=== PATIENT | female | born 1930 | race Caucasian/White ===

== ENCOUNTER 2017-04-21 04:14 | Inpatient (IN) | payer OTHER ==
[~2017-04-21] VITALS: Ht 170.2 cm; Wt 61.2 kg
[2017-04-21] MEDS ORDERED: ONDANSETRON 4 MG/2 ML VIAL IV ONE (04:30)
[2017-04-21] MEDS ORDERED: MORPHINE SULFATE 2 MG/1 ML DISP.SYRIN IV ONE (04:30)
[2017-04-21] MEDS ORDERED: MORPHINE SULFATE 4 MG/1 ML DISP.SYRIN ONE ×2 (04:42→05:29)
[2017-04-21] MEDS ORDERED: ONDANSETRON 4 MG/2 ML VIAL ONE (04:42)
[2017-04-21 04:49] LABS: BASOPHILS % (AUTO) 0.3 % (0.0-2.0); EOSINOPHILS # (AUTO) 0.1 K/uL (0.0-0.7); EOSINOPHILS % (AUTO) 1.7 % (0.0-7.0); HEMATOCRIT 41.2 % (37-47); HEMOGLOBIN 13.7 G/DL (12.0-16.0); LYMPHOCYTES # (AUTO) 1.3 K/UL (0.8-4.8); LYMPHOCYTES % (AUTO) 26.3 % (20.5-51.5); MEAN CORPUSCULAR HEMOGLOBIN 29.2 UUG (27.0-31.0); MEAN CORPUSCULAR HGB CONC 33 g/dL (32.0-37.0); MEAN CORPUSCULAR VOLUME 87.9 FL (81.0-99.0); MONOCYTES # (AUTO) 0.2 K/UL (0.1-1.30); MONOCYTES % (AUTO) 4.9 % (0.0-11.0); NEUTROPHILS # (AUTO) 3.3 K/UL (1.8-8.9); NEUTROPHILS % (AUTO) 66.8 % (38.5-71.5); PLATELET COUNT (AUTO) 279 K/UL (150-450); RED BLOOD CELL COUNT(AUTO) 4.69 MIL/UL (4.2-5.4); WHITE BLOOD COUNT (AUTO) 4.9 K/UL (4.0-11.2)
[2017-04-21 05:05] LABS: ALKALINE PHOSPHATASE 56 U/L (50-136); ASPARTATE AMINOTRANSFERASE 19 U/L (15-37); BILIRUBIN,DIRECT 0.1 mg/dL (0.0-0.2); BILIRUBIN,TOTAL 0.4 mg/dL (0.2-1.0); CARBON DIOXIDE 29 mmol/L (21-32); CHLORIDE 103 mmol/L (98-107); CREATININE 0.6 mg/dL (0.6-1.3); GLUCOSE 106 mg/dL (74-106); POTASSIUM 3.6 mmol/L (3.5-5.1); TOTAL PROTEIN, SERUM 6.9 g/dL (6.4-8.2); UREA NITROGEN, BLOOD 11 mg/dL (7-18)
[2017-04-21] MEDS ORDERED: MORPHINE SULFATE 4 MG/1 ML DISP.SYRIN IV ONE (05:15)
--- NOTE | 2017-04-21 05:26 | NUR ---
Pt biba for c/o right hip pain s/p mech fall. Pt has noted external rotation and shortening. Pos CMS. Pt seen by MD. Labs drawn and sent. EKG obtained. Xrays obtain and louise placed. Pt medicated for discomfort twice. Will monitor for effects of medication. Pt resting in position of comfort for self. Family at bedside.
[2017-04-21 05:31] LABS: ALANINE AMINOTRANSFERASE 20 U/L (14-59)
--- NOTE | 2017-04-21 05:31 | NUR ---
Call placed to [facility], Dr. Gray will be paged.
--- NOTE | 2017-04-21 05:51 | NUR ---
ALEC speaking with Dr. Gray.
[2017-04-21] MEDS ORDERED: ACETAMINOPHEN 325 MG TABLET PO PRN (06:00)
[2017-04-21] MEDS ORDERED: HYDROCODONE/APAP 5-325MG TABLET PO PRN (06:00)
[2017-04-21] MEDS ORDERED: ONDANSETRON 4 MG/2 ML VIAL IV PRN (06:00)
[2017-04-21] MEDS ORDERED: ZOLPIDEM 5 MG TABLET PO PRN (06:00)
[2017-04-21] MEDS ORDERED: Z GUARD REMEDY PASTE 57 GM TUBE TOP PRN (06:00)
--- NOTE | 2017-04-21 06:01 | NUR ---
Report called to ANA Haas. Preparing to transfer pt to the floor.
[2017-04-21 06:42] VITALS: BP 140/66
[2017-04-21] MEDS: MORPHINE SULFATE 2 MG/1 ML DISP.SYRIN IV PRN ×2 (08:06→12:36)
[2017-04-21] MEDS: PANTOPRAZOLE SODIUM 40 MG TABLET.DR PO SCH (08:08)
[2017-04-21] MEDS: IV NS 1000 ML 1,000 ML IV PRN ×2 (08:18→21:43)
--- NOTE | 2017-04-21 08:30 | NUR ---
ADMISSION PROTOCOL FOLLOWED, PT LYING SUPINE IN BED, AWAKE IN NO ACUTE DISTRESS, PAIN 7/10, WILL ADMIN PAIN MEDICATIONS ORDERED. ALL SAFETY AND COMFORT MEDICATIONS ATTENDED TO, ORIENTED TO ROOM AND CALL LIGHT, WILL CONTINUE TO MONITOR
[2017-04-21 11:11] VITALS: BP 113/55
[2017-04-21 15:20] VITALS: BP 127/62
--- NOTE | 2017-04-21 19:22 | NUR ---
NO CHANGES NOTED THROUGHOUT SHIFT, SPOKE WITH DR UNDERWOOD, WILL BE IN TONIGHT OR TOMORROW MORNING FOR CONSULT. PT DOES NOT WANT TO EAT FOR FEAR OF BOWEL MOVEMENT, EXPLAINED TO PT NUMEROUS TIMES THAT IT IS IMPORTANT TO EAT AND THAT WE CAN PRE MEDICATE WITH PAIN MEDICATION WHEN IT IS TIME TO MOVE AND CLEAN PT, PT FAMILY MEMBERS AT BEDSIDE ONE OF THE TIMES AND SIDED WITH PT. ENDORSED TO NUCLEAR EQUIPMENT TEST ENGINEER DURING BEDSIDE REPORT AND PT AGREED TO TRY A SANDWICH OR JELLO, WILL PROVIDE. ALL SAFETY AND COMFORT MEASURES MAINTAINED THROUGHOUT SHIFT. CALL LIGHT IN REACH
--- NOTE | 2017-04-21 19:30 | NUR ---
RECEIVED PATIENT LAYING IN BED, HOB 15 DEGREES COMFORTABLY WITH NO SIGNS OF ACUTE DISTRESS. PATIENT IS ALERT AND ORIENTED Xs 4. ENCOURAGE EATING. ENCOURAGED TURN AND REPOSITIONED BUT PATIENT IS AFRAID TO MOVE BECAUSE OF HIP PAIN. IV ON L AC PATENT AND INTACT. SAFETY INITIATED. CALL LIGHT WITHIN REACH. PENDING DR. UNDERWOOD FOR ORTHO CONSULT.
[2017-04-21 20:22] VITALS: BP 134/61
[2017-04-22] MEDS: MORPHINE SULFATE 2 MG/1 ML DISP.SYRIN IV PRN ×4 (02:33→19:47)
[2017-04-22] MEDS: PANTOPRAZOLE SODIUM 40 MG TABLET.DR PO SCH (06:18)
[2017-04-22 06:35] VITALS: BP 138/69
[2017-04-22 07:40] LABS: CARBON DIOXIDE 28 mmol/L (21-32); CHLORIDE 102 mmol/L (98-107); CREATININE 0.5 mg/dL (0.6-1.3); GLUCOSE 90 mg/dL (74-106); MAGNESIUM 1.9 mg/dL (1.8-2.4); PHOSPHOROUS 2.9 mg/dL (2.5-4.9); POTASSIUM 3.5 mmol/L (3.5-5.1); UREA NITROGEN, BLOOD 6 mg/dL (7-18)
--- NOTE | 2017-04-22 07:44 | NUR ---
PATIENT SLEPT COMFORTABLY THROUGHOUT THE NIGHT. NO ACUTE DISTRESS NOTED. WAS ABLE TO LOG ROLL TO CHECK THE SKIN, NO SKIN BREAKDOWN NOTED. SAFETY WAS MAINTAINED THROUGHOUT THE NIGHT. ALL NEEDS MET.
[2017-04-22 07:47] LABS: BASOPHILS % (AUTO) 0.3 % (0.0-2.0); EOSINOPHILS # (AUTO) 0.1 K/uL (0.0-0.7); EOSINOPHILS % (AUTO) 0.9 % (0.0-7.0); HEMATOCRIT 38.2 % (37-47); LYMPHOCYTES # (AUTO) 1.3 K/UL (0.8-4.8); LYMPHOCYTES % (AUTO) 17.6 % (20.5-51.5); MEAN CORPUSCULAR HEMOGLOBIN 30.3 UUG (27.0-31.0); MEAN CORPUSCULAR HGB CONC 34 g/dL (32.0-37.0); MONOCYTES # (AUTO) 0.5 K/UL (0.1-1.30); NEUTROPHILS # (AUTO) 5.5 K/UL (1.8-8.9); NEUTROPHILS % (AUTO) 74.2 % (38.5-71.5); PLATELET COUNT (AUTO) 247 K/UL (150-450); RED BLOOD CELL COUNT(AUTO) 4.29 MIL/UL (4.2-5.4)
[2017-04-22 07:56] LABS: WHITE BLOOD COUNT (AUTO) 7.4 K/UL (4.0-11.2)
[2017-04-22 11:13] VITALS: BP 144/70
[2017-04-22 11:36] LABS: *BILIRUBIN,URIN NEGATIVE (NEGATIVE); *BLOOD, URINE 3+ (NEGATIVE); *CLARITY,URINE CLOUDY (CLEAR); *COLOR,URINE LIGHT YELLOW (YELLOW); *KETONES,URINE 3+ (NEGATIVE); *PROTEIN,URINE NEGATIVE (NEGATIVE); *UROBILINOGEN,URINE 0.2 E.U./dl (NORMAL); LEUKOCYTE ESTERASE ,URINE 1+ (NEGATIVE); NITRITE, URINE NEGATIVE (NEGATIVE); UGLUCOSE NEGATIVE (NEGATIVE)
[2017-04-22 11:47] LABS: BACTERIA,URINE MANY /HPF (NONE SEEN); RBC,URINE 20-50 /HPF (0-3); SQUAMOUS EPITHELIAL CELL,UR FEW /HPF (NONE SEEN)
[2017-04-22] MEDS: IV NS 1000 ML 1,000 ML IV PRN (12:13)
[2017-04-22 15:15] VITALS: BP 115/57
[2017-04-22] MEDS ORDERED: CEFTRIAXONE 1 G VIAL IM SCH (16:15)
[2017-04-22] MEDS: CEFTRIAXONE 1 G in IV DEXTROSE 5% 50 ML IV SCH (17:51)
--- NOTE | 2017-04-22 19:30 | NUR ---
PT RECEIVED IN BED. A/OX4. V/S STABLE. NO SIGNS OF ACUTE DISTRESS. NO COMPLAINTS OF PAIN AT THIS TIME. ABLE TO MAKE NEEDS KNOWN. IVF INFUSING. SAFETY MEASURES IMPLEMENTED. CALL LIGHT WITHIN REACH. WILL CONTINUE TO MONITOR.
[2017-04-22 20:12] VITALS: BP 112/61
[2017-04-22] MEDS: MAGNESIUM HYDROXIDE 30 ML LIQUID UDC PO PRN (22:57)
[2017-04-23] MEDS: MORPHINE SULFATE 2 MG/1 ML DISP.SYRIN IV PRN (01:15)
[2017-04-23] MEDS: IV NS 1000 ML 1,000 ML IV PRN ×3 (03:57→14:09)
[2017-04-23 04:47] VITALS: BP 143/66
--- NOTE | 2017-04-23 06:10 | NUR ---
END OF SHIFT NOTES. PT SLEPT WELL THROUGHOUT SHIFT. V/S STABLE. NO SIGNS OF ACUTE DISTRESS. COMPLAINTS OF PAIN 06/15. PAIN MEDICATIONS ADMINISTERED ORDERED. PT VERBALIZED RELIEF OF PAIN. IVF INFUSING. NEEDS ATTENDED. SAFETY MAINTAINED. CALL LIGHT WITHIN REACH.
[2017-04-23] MEDS: PANTOPRAZOLE SODIUM 40 MG TABLET.DR PO SCH (07:00)
--- NOTE | 2017-04-23 07:10 | NUR ---
RECEIVED REPORT FROM DESTATICIZER FEEDER, PATIENT IN BED, SAFETY CHECK, BED IN LOW POSITION AND SIDE RAILS UPX2.
[2017-04-23 07:36] LABS: EOSINOPHILS # (AUTO) 0.1 K/uL (0.0-0.7); EOSINOPHILS % (AUTO) 1.1 % (0.0-7.0); HEMATOCRIT 38.4 % (37-47); HEMOGLOBIN 13.2 G/DL (12.0-16.0); LYMPHOCYTES # (AUTO) 1.2 K/UL (0.8-4.8); LYMPHOCYTES % (AUTO) 13.6 % (20.5-51.5); MEAN CORPUSCULAR HEMOGLOBIN 30.2 UUG (27.0-31.0); MEAN CORPUSCULAR HGB CONC 34 g/dL (32.0-37.0); MEAN CORPUSCULAR VOLUME 88.1 FL (81.0-99.0); MONOCYTES # (AUTO) 0.6 K/UL (0.1-1.30); MONOCYTES % (AUTO) 6.8 % (0.0-11.0); NEUTROPHILS % (AUTO) 78.5 % (38.5-71.5); PLATELET COUNT (AUTO) 255 K/UL (150-450); RED BLOOD CELL COUNT(AUTO) 4.36 MIL/UL (4.2-5.4); WHITE BLOOD COUNT (AUTO) 8.9 K/UL (4.0-11.2)
[2017-04-23] MEDS ORDERED: MORPHINE SULFATE 4 MG/1 ML DISP.SYRIN ONE (07:44)
[2017-04-23] MEDS ORDERED: ROCURONIUM BROMIDE 50 MG/5 ML VIAL ONE (07:44)
[2017-04-23] MEDS ORDERED: FENTANYL CITRATE 250 MCG/5 ML AMPUL ONE (07:44)
[2017-04-23 07:49] LABS: CARBON DIOXIDE 29 mmol/L (21-32); CHLORIDE 100 mmol/L (98-107); CREATININE 0.5 mg/dL (0.6-1.3); GLUCOSE 101 mg/dL (74-106); PHOSPHOROUS 2.5 mg/dL (2.5-4.9); POTASSIUM 3.4 mmol/L (3.5-5.1); UREA NITROGEN, BLOOD 7 mg/dL (7-18)
--- NOTE | 2017-04-23 08:00 | NUR ---
PATIENT WAS TAKEN TO SURGERY
[2017-04-23] MEDS ORDERED: BACITRACIN 50,000 UNITS VIAL ONE (08:14)
--- NOTE | 2017-04-23 11:00 | NUR ---
PATIENT RETURNED FROM SURGERY, VITALS WNL, NO PAIN REPORTED, BED IN LOW POSITION, SIDE RAILS UP X2.
[2017-04-23 11:14] VITALS: BP 106/54
[2017-04-23] MEDS: POTASSIUM CHLORIDE 50 ML IV SCH ×2 (11:29→11:39)
[2017-04-23] MEDS ORDERED: HYDROCODONE/APAP 10-325 MG TABLET PO PRN (11:45)
[2017-04-23] MEDS ORDERED: HYDROCODONE/APAP 5-325MG TABLET PO PRN ×2 (13:00)
[2017-04-23] MEDS: ACETAMINOPHEN 325 MG TABLET PO SCH ×2 (14:00→22:54)
[2017-04-23] MEDS ORDERED: CEFAZOLIN 1 G VIAL MC ONE (14:01)
[2017-04-23] MEDS ORDERED: IV LACTATED RINGERS SOLUTION 1,000 ML BAG IV ONE (14:01)
[2017-04-23] MEDS ORDERED: NEOSTIGMINE METHYLSULFATE 10 MG/10 ML VIAL IV ONE (14:01)
[2017-04-23] MEDS ORDERED: ONDANSETRON 4 MG/2 ML VIAL IV ONE (14:01)
[2017-04-23] MEDS ORDERED: DEXAMETHASONE SOD PHOSPHATE 4 MG INJ IV ONE (14:01)
[2017-04-23] MEDS ORDERED: GLYCOPYRROLATE 0.2 MG/ML VIAL MC ONE (14:01)
[2017-04-23] MEDS ORDERED: LIDOCAINE-MPF 2% 5 ML VIAL MC ONE (14:01)
[2017-04-23] MEDS ORDERED: DESFLURANE ANESTHESIA GAS 240 ML BOTTLE IH ONE (14:01)
[2017-04-23] MEDS ORDERED: PROPOFOL 200 MG/20 ML BOTTLE IV ONE (14:01)
[2017-04-23] MEDS ORDERED: EPHEDRINE SULFATE 50 MG/ML AMPUL MC ONE (14:01)
[2017-04-23] MEDS ORDERED: IRR NORMAL SALINE IRRIGATION 1,000 ML BOTTLE IR ONE (14:01)
[2017-04-23 15:40] VITALS: BP 99/56
[2017-04-23] MEDS: CEFTRIAXONE 1 G in IV DEXTROSE 5% 50 ML IV SCH (17:22)
--- NOTE | 2017-04-23 19:30 | NUR ---
PT RECEIVED IN BED, ASLEEP. V/S STABLE. NO SIGNS OF ACUTE DISTRESS. NO COMPLAINTS OF PAIN AT THIS TIME. PT ON 2L NC. SAFETY MEASURES IMPLEMENTED. CALL LIGHT WITHIN REACH WILL CONTINUE TO MONITOR.
[2017-04-23 20:00] VITALS: BP 93/50
[2017-04-24] MEDS: IV NS 1000 ML 1,000 ML IV PRN ×3 (00:42→19:00)
[2017-04-24] MEDS: MAGNESIUM HYDROXIDE 30 ML LIQUID UDC PO PRN (03:03)
--- NOTE | 2017-04-24 05:58 | NUR ---
END OF SHIFT NOTES. PT SLEPT INTERMITTENTLY THROUGHOUT SHIFT. V/S STABLE. NO SIGNS OF ACUTE DISTRESS. NO COMPLAINTS OF PAIN THROUGHOUT SHIFT. PT COMPLAINS OF FEELING CONSTIPATED. MILK OF MAG ADMINISTERED ORDERED. IVF INFUSING. WESTBROOK CATHETER OUTPUT 450ML THROUGHOUT SHIFT. URINE CLEAR YELLOW. SAFETY MEASURES MAINTAINED. CALL LIGHT WITHIN REACH.
[2017-04-24 06:10] VITALS: BP 100/57
[2017-04-24] MEDS: ACETAMINOPHEN 325 MG TABLET PO SCH ×3 (06:16→21:04)
[2017-04-24] MEDS: PANTOPRAZOLE SODIUM 40 MG TABLET.DR PO SCH (06:16)
--- NOTE | 2017-04-24 07:20 | NUR ---
RECEIVED REPORT FROM BANKING SERVICES ADVISOR, SAFETY CHECK, BED IN LOW POSITION, SIDE RAILS UPX2, BED ALARM ON.
[2017-04-24 07:37] LABS: CARBON DIOXIDE 28 mmol/L (21-32); CHLORIDE 99 mmol/L (98-107); CREATININE 0.6 mg/dL (0.6-1.3); GLUCOSE 117 mg/dL (74-106); MAGNESIUM 2.2 mg/dL (1.8-2.4); PHOSPHOROUS 2.3 mg/dL (2.5-4.9); POTASSIUM 4.2 mmol/L (3.5-5.1); UREA NITROGEN, BLOOD 16 mg/dL (7-18)
[2017-04-24 08:54] LABS: BASOPHILS % (AUTO) 0.2 % (0.0-2.0); EOSINOPHILS # (AUTO) 0.1 K/uL (0.0-0.7); EOSINOPHILS % (AUTO) 0.8 % (0.0-7.0); LYMPHOCYTES # (AUTO) 1.1 K/UL (0.8-4.8); LYMPHOCYTES % (AUTO) 9.7 % (20.5-51.5); MEAN CORPUSCULAR HEMOGLOBIN 30.2 UUG (27.0-31.0); MEAN CORPUSCULAR HGB CONC 34 g/dL (32.0-37.0); MEAN CORPUSCULAR VOLUME 88.6 FL (81.0-99.0); MONOCYTES # (AUTO) 0.5 K/UL (0.1-1.30); MONOCYTES % (AUTO) 4.6 % (0.0-11.0); NEUTROPHILS # (AUTO) 9.2 K/UL (1.8-8.9); NEUTROPHILS % (AUTO) 84.7 % (38.5-71.5); PLATELET COUNT (AUTO) 234 K/UL (150-450); WHITE BLOOD COUNT (AUTO) 10.9 K/UL (4.0-11.2)
[2017-04-24 08:55] LABS: RED BLOOD CELL COUNT(AUTO) 3.79 MIL/UL (4.2-5.4)
[2017-04-24 08:56] LABS: HEMATOCRIT 33.6 % (37-47); HEMOGLOBIN 11.5 G/DL (12.0-16.0)
[2017-04-24] MEDS ORDERED: SODIUM PHOSPHATE MM 15 MM in IV DEXTROSE 5% 250 ML IV ONE (11:15)
[2017-04-24] MEDS: DOCUSATE SODIUM 100 MG CAPSULE PO SCH ×2 (11:58→21:04)
[2017-04-24 12:00] VITALS: BP 111/62
[2017-04-24] MEDS: MORPHINE SULFATE 2 MG/1 ML DISP.SYRIN IV PRN (12:05)
--- NOTE | 2017-04-24 14:00 | NUR ---
PATIENT GOT UP WITH PHYSICAL THERAPY AND TOLERATED WELL, SAT IN CHAIR UPRIGHT FOR AN HOUR.
[2017-04-24 16:16] VITALS: BP 105/60
[2017-04-24] MEDS: CEFTRIAXONE 1 G in IV DEXTROSE 5% 50 ML IV SCH (17:47)
--- NOTE | 2017-04-24 18:26 | NUR ---
PATIENT IS IN BED, NO DISCOMFORT NOTED, NO SOB, NO PAIN REPORTED. SAFETY CHECK, BED IN LOW POSITION, SIDE RAILS UP X2, BED ALARM ON.
--- NOTE | 2017-04-24 20:00 | NUR ---
RECEIVED PATIENT AWAKE IN BED. PATIENT IS A/O X3. DENIES PAIN OR DISCOMFORT AT THIS TIME. NO RESP. DISTRESS NOTED. ON O2 2L NC SATING WELL. IVF INFUSING WELL TO RIGHT WRIST #20 GAUGE. ORIGINAL DRESSING NOTED TO RIGHT HIP. CLEAN AND INTACT, ICE APPLIED TO HIP. BILATERAL DVT PUMPS IN PLACE AND BILATERAL HEELS OFF-LOADED FOR PRESSURE RELIEF. F/C INTACT AND PATENT, DRAINING WELL. ON ISOLATION FOR ESBL IN URINE. BED ALARM ON. CALL LIGHT IN REACH. ALL NEEDS ATTENDED. WILL CONTINUE TO MONITOR.
[2017-04-25] MEDS: IV NS 1000 ML 1,000 ML IV PRN (05:10)
--- NOTE | 2017-04-25 05:30 | NUR ---
PATIENT AWAKE IN BED. SLEPT WELL THROUGHOUT THE NIGHT. ICE BAG NOTED TO RIGHT HIP. PATIENT IS 2ND DAY POST-OP, WESTBROOK CATHETER REMOVED NOTED PROTOCOL. DENIES PAIN AT THIS TIME. NO RESP. DISTRESS NOTED. VSS. IVF INFUSING WELL TO RIGHT WRIST. BED ALARM ON. CALL LIGHT IN REACH. ALL NEEDS ATTENDED. WILL CONTINUE TO MONITOR.
[2017-04-25] MEDS: PANTOPRAZOLE SODIUM 40 MG TABLET.DR PO SCH (06:03)
[2017-04-25] MEDS: ACETAMINOPHEN 325 MG TABLET PO SCH ×3 (06:03→21:39)
[2017-04-25 06:47] VITALS: BP 104/62
[2017-04-25 06:56] LABS: BASOPHILS % (AUTO) 0.3 % (0.0-2.0); EOSINOPHILS # (AUTO) 0.1 K/uL (0.0-0.7); EOSINOPHILS % (AUTO) 1.6 % (0.0-7.0); HEMATOCRIT 30.8 % (37-47); HEMOGLOBIN 10.4 G/DL (12.0-16.0); LYMPHOCYTES % (AUTO) 12.5 % (20.5-51.5); MEAN CORPUSCULAR HEMOGLOBIN 30.6 UUG (27.0-31.0); MEAN CORPUSCULAR HGB CONC 34 g/dL (32.0-37.0); MEAN CORPUSCULAR VOLUME 90.5 FL (81.0-99.0); MONOCYTES # (AUTO) 0.4 K/UL (0.1-1.30); MONOCYTES % (AUTO) 5.6 % (0.0-11.0); NEUTROPHILS # (AUTO) 6.5 K/UL (1.8-8.9); PLATELET COUNT (AUTO) 227 K/UL (150-450)
--- NOTE | 2017-04-25 07:10 | NUR ---
received report from warehouse supervisor 3rd shift, patient in bed, safety check, bed in low position, side rails upx2.
[2017-04-25 07:54] LABS: CARBON DIOXIDE 28 mmol/L (21-32); CHLORIDE 103 mmol/L (98-107); CREATININE 0.5 mg/dL (0.6-1.3); GLUCOSE 106 mg/dL (74-106); PHOSPHOROUS 2.2 mg/dL (2.5-4.9); POTASSIUM 3.7 mmol/L (3.5-5.1); UREA NITROGEN, BLOOD 10 mg/dL (7-18)
[2017-04-25] MEDS: DOCUSATE SODIUM 100 MG CAPSULE PO SCH ×2 (09:54→21:39)
[2017-04-25] MEDS: MORPHINE SULFATE 2 MG/1 ML DISP.SYRIN IV PRN (10:21)
--- NOTE | 2017-04-25 10:50 | NUR ---
PATIENT WORKING WITH PHYSICAL THERAPY, TOLERATING WELL AFTER PREMEDICATION FOR PAIN.
[2017-04-25] MEDS: POTASSIUM PHOSPHATE MM 5 MMOL in IV DEXTROSE 5% 100 ML IV SCH ×2 (11:30→12:45)
[2017-04-25 11:48] LABS: THYROID STIMULATING HORMONE 1.974 mIU/mL (0.358-3.740)
[2017-04-25 11:56] VITALS: BP 116/60
--- NOTE | 2017-04-25 12:10 | NUR ---
PATIENT WORKING WITH OCCUPATIONAL THERAPY, TOLERATED WELL.
[2017-04-25 15:28] VITALS: BP 106/48
[2017-04-25] MEDS: SOD FERRIC GLUC COMPLX/SUCROSE 125 MG in IV NORMAL SALINE 100 ML IV SCH (17:00)
--- NOTE | 2017-04-25 18:13 | NUR ---
PATIENT IS IN BED, NO EVIDENCE OF DISTRESS, SOB, OR PAIN. SIDE RAILS UPX2, BED IN LOW POSITION, BED ALARM ON.
[2017-04-25] MEDS: CEFTRIAXONE 1 G in IV DEXTROSE 5% 50 ML IV SCH (18:21)
--- NOTE | 2017-04-25 19:30 | NUR ---
PT RECEIVED IN BED, AWAKE. V/S STABLE. NO SIGNS OF ACUTE DISTRESS. NO COMPLAINTS OF PAIN AT THIS TIME. ABLE TO MAKE NEEDS KNOWN. IVF INFUSING. SAFETY PRECAUTIONS IMPLEMENTED. CALL LIGHT WITHIN REACH. WILL CONTINUE TO MONITOR.
[2017-04-25 20:10] VITALS: BP 113/48
[2017-04-25 20:37] LABS: *OCCULT BLOOD STOOL NEGATIVE (NEGATIVE)
[2017-04-26] MEDS: IV NS 1000 ML 1,000 ML IV PRN ×2 (00:21→14:53)
[2017-04-26 04:41] VITALS: BP_SYST 120; BP_SYST 141; BP_DIAS 64; BP_DIAS 81
[2017-04-26] MEDS: ACETAMINOPHEN 325 MG TABLET PO SCH ×3 (06:28→21:19)
[2017-04-26] MEDS: PANTOPRAZOLE SODIUM 40 MG TABLET.DR PO SCH (06:28)
--- NOTE | 2017-04-26 06:40 | NUR ---
END OF SHIFT NOTES. PT SLEPT WELL THROUGHOUT SHIFT. V/S STABLE. NO SIGNS OF ACUTE DISTRESS. NO COMPLAINTS OF PAIN AT THIS TIME. IVF INFUSING. NEEDS ATTENDED. SAFETY MAINTAINED. CALL LIGHT WITHIN REACH.
[2017-04-26 07:27] LABS: BASOPHILS % (AUTO) 0.3 % (0.0-2.0); EOSINOPHILS # (AUTO) 0.1 K/uL (0.0-0.7); EOSINOPHILS % (AUTO) 1.5 % (0.0-7.0); HEMATOCRIT 30.8 % (37-47); HEMOGLOBIN 10.5 G/DL (12.0-16.0); LYMPHOCYTES % (AUTO) 13.8 % (20.5-51.5); MEAN CORPUSCULAR HEMOGLOBIN 30.1 UUG (27.0-31.0); MEAN CORPUSCULAR HGB CONC 34 g/dL (32.0-37.0); MEAN CORPUSCULAR VOLUME 88.4 FL (81.0-99.0); MONOCYTES # (AUTO) 0.5 K/UL (0.1-1.30); NEUTROPHILS # (AUTO) 5.6 K/UL (1.8-8.9); NEUTROPHILS % (AUTO) 77.4 % (38.5-71.5); PLATELET COUNT (AUTO) 247 K/UL (150-450); RED BLOOD CELL COUNT(AUTO) 3.49 MIL/UL (4.2-5.4); WHITE BLOOD COUNT (AUTO) 7.2 K/UL (4.0-11.2)
[2017-04-26] MEDS: DOCUSATE SODIUM 100 MG CAPSULE PO SCH ×2 (08:04→21:19)
[2017-04-26 08:20] LABS: CARBON DIOXIDE 27 mmol/L (21-32); CHLORIDE 102 mmol/L (98-107); CREATININE 0.4 mg/dL (0.6-1.3); GLUCOSE 104 mg/dL (74-106); MAGNESIUM 2.2 mg/dL (1.8-2.4); PHOSPHOROUS 2.5 mg/dL (2.5-4.9); POTASSIUM 3.9 mmol/L (3.5-5.1); UREA NITROGEN, BLOOD 8 mg/dL (7-18)
[2017-04-26] MEDS: MORPHINE SULFATE 2 MG/1 ML DISP.SYRIN IV PRN (11:10)
[2017-04-26 11:37] VITALS: BP 153/72
[2017-04-26] MEDS: SOD FERRIC GLUC COMPLX/SUCROSE 125 MG in IV NORMAL SALINE 100 ML IV SCH (14:53)
[2017-04-26 15:29] VITALS: BP 126/62
[2017-04-26] MEDS: CEFTRIAXONE 1 G in IV DEXTROSE 5% 50 ML IV SCH (18:18)
--- NOTE | 2017-04-26 19:30 | NUR ---
IN BED, ALERT AND ORIENTED. ABLE TO MAKE NEEDS KNOWN. NO ACUTE DISTRESS NOTED AT THIS TIME. NO COMPLAINTS OF PAIN AT THIS TIME. AWARE OF POSSIBLE DC TOMORROW. STATED WAS ABLE TO AMBULATE WITH PT DURING THE DAY TIME AND WAS ABLE TO SIT IN THE CHAIR. SAFETY INITIATED. CALL LIGHT WITHIN REACH. WILL CONTINUE TO MONITOR
[2017-04-26 20:00] VITALS: BP 122/59
[2017-04-27] MEDS: IV NS 1000 ML 1,000 ML IV PRN ×3 (02:10→23:02)
[2017-04-27 04:00] VITALS: BP 135/66
--- NOTE | 2017-04-27 05:49 | NUR ---
SLEPT INTERMITTENTLY DURING THE SHIFT. ABLE TO HELP DURING TURNING AND REPOSITION. NO ACUTE DISTRESS NOTED. ALL DUE MEDS GIVEN ORDERED. PAIN CONTROLLED WITH MEDICATIONS ORDERED. NEEDS ATTENDED. CALL LIGHT WITHIN REACH
[2017-04-27] MEDS: ACETAMINOPHEN 325 MG TABLET PO SCH ×3 (06:13→21:24)
[2017-04-27] MEDS: PANTOPRAZOLE SODIUM 40 MG TABLET.DR PO SCH (06:13)
[2017-04-27] MEDS: DOCUSATE SODIUM 100 MG CAPSULE PO SCH ×2 (08:59→21:24)
--- NOTE | 2017-04-27 12:22 | NUR ---
PER DR. GUILLERMO MILK OF MAGNESIUM 30MG DAILY, FIRST DOSE NOW
[2017-04-27 12:51] VITALS: BP 132/75
[2017-04-27] MEDS ORDERED: MAGNESIUM HYDROXIDE 30 ML LIQUID UDC PO PRN (13:00)
[2017-04-27 15:44] VITALS: BP 127/63
--- NOTE | 2017-04-27 15:44 | NUR ---
Had been in contact with Mihir from [employer] [[phone]; Fax [phone]; [email or web address] and he requested for the patient's medical records to be faxed or emailed to them. Ajay from [employer] emailed them the patient's medical records and it was faxed as well. Awaiting for their authorization. In the meantime, Yara from [facility], evaluated the patient and will try to get authorization for her short term rehab. CM/SW will follow-up.
[2017-04-27] MEDS: CEFTRIAXONE 1 G in IV DEXTROSE 5% 50 ML IV SCH (17:18)
[2017-04-27 19:00] VITALS: BP 129/63
--- NOTE | 2017-04-27 19:24 | NUR ---
End of shift note: pt is sleeping in bed comfortably. No s/s of respiratory distress noted, no pain noted. Dressing is intact, pt refused to have dressing changed. Incentive Spirometer is encouraged, DVT pumps are on. Iv intact/patent. All safety needs are met.
--- NOTE | 2017-04-27 19:30 | NUR ---
PT RECEIVED IN BED AWAKE, COMFORTABLE. A/OX4. V/S STABLE. NO SIGNS OF ACUTE DISTRESS. NO COMPLAINTS OF PAIN AT THIS TIME. ABLE TO MAKE NEEDS KNOWN. SAFETY MEASURES IMPLEMENTED. CALL LIGHT WITHIN REACH WILL CONTINUE TO MONITOR.
[2017-04-28 04:00] VITALS: BP 148/76
--- NOTE | 2017-04-28 05:59 | NUR ---
END OF SHIFT NOTES. PT SLEPT WELL THROUGHOUT SHIFT. V/S STABLE. NO SIGNS OF ACUTE DISTRESS. NO COMPLAINTS OF PAIN. NEEDS ATTENDED. IVF INFUSING. SAFETY MAINTAINED. CALL LIGHT WITHIN REACH.
[2017-04-28] MEDS: PANTOPRAZOLE SODIUM 40 MG TABLET.DR PO SCH (07:00)
[2017-04-28] MEDS: ACETAMINOPHEN 325 MG TABLET PO SCH ×2 (07:08→14:00)
--- NOTE | 2017-04-28 07:09 | NUR ---
PYXIS MALFUNCTION. MAIA HELD.
[2017-04-28 07:19] LABS: BASOPHILS % (AUTO) 0.5 % (0.0-2.0); EOSINOPHILS # (AUTO) 0.2 K/uL (0.0-0.7); HEMATOCRIT 32.8 % (37-47); HEMOGLOBIN 11.3 G/DL (12.0-16.0); LYMPHOCYTES # (AUTO) 1.3 K/UL (0.8-4.8); LYMPHOCYTES % (AUTO) 20.9 % (20.5-51.5); MEAN CORPUSCULAR HEMOGLOBIN 30.3 UUG (27.0-31.0); MEAN CORPUSCULAR HGB CONC 34 g/dL (32.0-37.0); MONOCYTES # (AUTO) 0.5 K/UL (0.1-1.30); MONOCYTES % (AUTO) 8.5 % (0.0-11.0); NEUTROPHILS # (AUTO) 4.1 K/UL (1.8-8.9); NEUTROPHILS % (AUTO) 67.1 % (38.5-71.5); RED BLOOD CELL COUNT(AUTO) 3.73 MIL/UL (4.2-5.4); WHITE BLOOD COUNT (AUTO) 6.1 K/UL (4.0-11.2)
[2017-04-28 07:21] LABS: PLATELET COUNT (AUTO) 327 K/UL (150-450)
[2017-04-28 07:33] LABS: CARBON DIOXIDE 26 mmol/L (21-32); CHLORIDE 100 mmol/L (98-107); CREATININE 0.4 mg/dL (0.6-1.3); GLUCOSE 107 mg/dL (74-106); MAGNESIUM 2.1 mg/dL (1.8-2.4); PHOSPHOROUS 2.7 mg/dL (2.5-4.9); UREA NITROGEN, BLOOD 9 mg/dL (7-18)
[2017-04-28] MEDS: DOCUSATE SODIUM 100 MG CAPSULE PO SCH (08:34)
[2017-04-28 12:02] VITALS: BP 141/75
--- NOTE | 2017-04-28 15:32 | NUR ---
PER DR. GUILLERMO D/Corey VARELA IV
--- NOTE | 2017-04-28 15:51 | NUR ---
The patient will be discharged today to [facility]. Spoke to the patient and she was very thankful. Left a message to her daughter, Janice [[phone]; [phone]], about the discharge. Spoke to her this morning and she was really hoping for the patient to be transferred to [facility] instead of [facility]. YOHANA Crowe from [facility], confirmed that they will be able to admit the patient today after 7:00 p.m. Her RN, Hoda, is aware of her discharge and will call the unit for the report.
[2017-04-28 16:03] VITALS: BP 111/63
[2017-04-28] MEDS ORDERED: ACET325T53 PO (18:14)
[2017-04-28] MEDS ORDERED: PANT40TA2 PO (18:14)
[2017-04-28] MEDS ORDERED: DOCU100C36 PO (18:14)
[2017-04-28] MEDS ORDERED: HYDR-3326 PO (18:14)
[2017-04-28] MEDS ORDERED: ZOLP5TAB8 PO (18:14)
--- NOTE | 2017-04-28 18:48 | NUR ---
OK TO REMOVE IV PER DR. GUILLERMO
[2017-04-28 19:40] VITALS: BP 124/80
--- NOTE | 2017-04-28 19:48 | NUR ---
DISCHARGE NOTE: PT IS READY TO BE D/C. IV REMOVED. NO S/S OF RESPIRATORY DISTRESS NOTED. NO PAIN NOTED. FAMILY ACCOMPANIED THE PATIENT. V/S WNL. PT REFUSED PICTURES, AND CHANGE THE DRESSING. PER PT "I WAS TOLD BY THE SURGEON TO LEAVE THE DRESSING THERE". EDUCATION PROVIDED. REPORT IS GIVEN TO REHAB NURSE.
== END 2017-04-28 19:30 | DRG 481 ==
LOC: ER 04:23 → MED 05:55
PROVIDERS: ADMIT Internal Medicine; ATTEND Internal Medicine
PROC: 0QS606Z Reposition Right Upper Femur with Intramedullary Internal Fixation Device, Open Approach (ICD-10-PCS; principal; 2017-04-23 08:17)
DX: S72.141A Displaced intertrochanteric fracture of right femur, initial encounter for closed fracture (principal); N39.0 Urinary tract infection, site not specified; D68.59 Other primary thrombophilia; W01.0XXA Fall on same level from slipping, tripping and stumbling without subsequent striking against object, initial encounter; Y92.003 Bedroom of unspecified non-institutional (private) residence as the place of occurrence of the external cause; Z87.891 Personal history of nicotine dependence; I08.0 Rheumatic disorders of both mitral and aortic valves; B96.20 Unspecified Escherichia coli [E. coli] as the cause of diseases classified elsewhere; E87.6 Hypokalemia; D50.9 Iron deficiency anemia, unspecified; M19.012 Primary osteoarthritis, left shoulder; M19.011 Primary osteoarthritis, right shoulder; I10 Essential (primary) hypertension
CPT/HCPCS: 36415; 70030-TC; 71010; 72170; 73501; 73502; 73503; 76000; 83550; 83735; 84100; 84443; 85025; 85730; 87077; 87086; 93005; 93307; 97110; 97116; 97161; 97165; 97530; A4217; A4649; A4663; C1713; C1769; J0690; J0696; J1100; J2270; J2405; J2710; J2916; J3010; J3480; J3490; J7030; J7060; J7120

== ENCOUNTER 2017-04-28 16:41 | Inpatient (IN) | payer OTHER ==
[~2017-04-28] VITALS: Ht 160 cm; Wt 63.5 kg
[2017-04-28] MEDS ORDERED: ACET325T53 PO (18:14)
[2017-04-28] MEDS ORDERED: PANT40TA2 PO (18:14)
[2017-04-28] MEDS ORDERED: DOCU100C36 PO (18:14)
[2017-04-28] MEDS ORDERED: ZOLP5TAB8 PO (18:14)
[2017-04-28] MEDS ORDERED: HYDR-3326 PO (18:14)
--- NOTE | 2017-04-28 19:50 | NUR ---
Received patient from 2nd floor, [facility] in a stable condition. Arrived on a wheelchair accompanied by children. Drs. Lee and Manoj made aware. Dx: right hip fracture due to a fall incident, s/p ORIF. On room air, no acute distress noted. Respirations even and unlabored, no complaints of pain, manifests a pleasant disposition. HS meds given as ordered. Kept comfortable. Needs attended. Call light kept within reach. Daughter's contact numbers on file. Reminded to call for help whenever necessary. Safety precautions in place. Frequent checks done. Admission procedures done. Endorsed accordingly.
[2017-04-28 21:30] VITALS: BP 107/63
[2017-04-28] MEDS ORDERED: ZOLPIDEM 5 MG TABLET PO PRN (22:15)
[2017-04-28] MEDS ORDERED: DOCUSATE SODIUM 100 MG CAPSULE PO ONE (23:48)
[2017-04-28] MEDS: DOCUSATE SODIUM 100 MG CAPSULE PO SCH (23:49)
[2017-04-28] MEDS: ACETAMINOPHEN 325 MG TABLET PO SCH (23:49)
[2017-04-28] MEDS ORDERED: ACETAMINOPHEN 325 MG TABLET ONE (23:50)
[2017-04-28] MEDS ORDERED: ZOLPIDEM 5 MG TABLET ONE (23:50)
--- NOTE | 2017-04-29 07:57 | NUR ---
Patient resting on her bed at this time. Verbalizes absence of pain. HS meds given as ordered. Kept comfortable. Needs attended. Call light kept within reach. Daughter's contact numbers on file. Reminded to call for help whenever necessary. Safety precautions in place. Frequent checks done. Admission procedures done. Endorsed accordingly.
[2017-04-29 08:42] VITALS: BP 123/77
--- NOTE | 2017-04-29 10:00 | NUR ---
Received patient awake in bed. Alert, oriented and verbally responsive, No S/S of distress. With mild tolerable pain over surgical site. Offered pain medications but refused. Seen and evaluated by PT. weight bearing as tolerated may use bathroom with assistance.
[2017-04-29] MEDS: DOCUSATE SODIUM 100 MG CAPSULE PO SCH ×2 (10:27→20:18)
[2017-04-29] MEDS: PANTOPRAZOLE SODIUM 40 MG TABLET.DR PO SCH (10:28)
[2017-04-29] MEDS: ACIDOPHILUS/BULGARICUS CHEW TAB PO SCH ×2 (10:28→20:18)
[2017-04-29] MEDS: CALCIUM CARB/VITAMIN D 500MG-200UNITS TABLET PO SCH (10:28)
[2017-04-29] MEDS: SULFAMETH/TRIMETH 800/160 MG TABLET PO SCH ×2 (10:28→20:27)
--- NOTE | 2017-04-29 14:00 | NUR ---
Patient tolerated diet well. with relatives at dining area.
[2017-04-29] MEDS: ACETAMINOPHEN 325 MG TABLET PO SCH ×3 (14:15→22:15)
--- NOTE | 2017-04-29 18:00 | NUR ---
Patient in bed awake. Call light within reach. No complaints of pain or discomfort at this time. No s/s of distress
--- NOTE | 2017-04-29 19:30 | NUR ---
received patient awake, alert, and oriented x 4 with minimal discomfort of right hip s/p orif.csm adequate to toes. no c/o numbness or tingling of feet.arom done well by patient.right hip dressing with old drainage. according to day nurse, this dressing is not to be changed at this point.call light within reach. bed alarm placed. instructed patient to call rn for any requests and not to get oob by self without calling nurse first. patient verbalizes good understanding.
[2017-04-29] MEDS: HYDROCODONE/APAP 5-325MG TABLET PO PRN (20:19)
--- NOTE | 2017-04-29 21:00 | NUR ---
assisted patient oob to toilet with walker assist. needs moderate assistance with pulling both legs back into bed,coaxing and steadying while sitting down on toilet. gait is fairly steady in ambulation.able to pull herself up in bed with assist of siderails. patient stated premedicating with norco really helped. and is presently without discomfort and resting on and off after back in bed.pm care completed. refuses pm snack.
[2017-04-29 21:53] VITALS: BP 116/63
[2017-04-30] MEDS: ACETAMINOPHEN 325 MG TABLET PO SCH ×3 (06:23→21:36)
[2017-04-30] MEDS: PANTOPRAZOLE SODIUM 40 MG TABLET.DR PO SCH (06:23)
[2017-04-30 07:53] VITALS: BP 120/65
--- NOTE | 2017-04-30 08:45 | NUR ---
Report received from mica paster. Patient awake, alert and oriented x4. No S/S of distress. No complaints of pain. Morning care, oral care done. Call light within reach. Encouraged to make needs known.
[2017-04-30] MEDS: CALCIUM CARB/VITAMIN D 500MG-200UNITS TABLET PO SCH (09:32)
[2017-04-30] MEDS: DOCUSATE SODIUM 100 MG CAPSULE PO SCH ×2 (09:32→21:36)
[2017-04-30] MEDS: ACIDOPHILUS/BULGARICUS CHEW TAB PO SCH ×2 (09:32→21:36)
[2017-04-30] MEDS: SULFAMETH/TRIMETH 800/160 MG TABLET PO SCH ×2 (09:32→21:36)
--- NOTE | 2017-04-30 16:00 | NUR ---
Verified with Dillan Carvalho for any orders for dressing change. ordered dressing change once, weight bearing as tolerated and follow up two weeks after surgery. Dressing changed as ordered.
[2017-04-30] MEDS: RIVAROXABAN 10 MG TABLET PO SCH (18:54)
--- NOTE | 2017-04-30 19:00 | NUR ---
Report given to overnight houseperson. Informed overnight houseperson about Dr. Ravi's orders and reminded not to change dressing until ordered otherwise.
--- NOTE | 2017-04-30 19:30 | NUR ---
RECEIVED PATIENT OOB IN CHAIR IN NO APPARENT DISTRESS. NO C/O PAIN. DOES HAVE SOME CONCERNS WITH STIFFNESS OF HIP. ENCOURAGED TO MOVE AND THEN ASSISTED TO TOILET WITH WALKER. THE MORE SHE AMBULATED, THE LESS SHE FELT STIFF. PM CARE GIVEN. REFUSED PM SNACK. IMPROVED AMBULATION AND GETTING IN AND OOB IMPROVED TONIGHT OVER LAST NIGHT. RIGHT HIP DRESSING CLEAN, DRY, AND INTACT. CSM ADEQUATE TO TOES.SCD'S ON WHILE IN BED FOR VTE PROPHYLAXIS.RECEIVED XARELTO TODAY.NO SIGNS OF OVERT BLEEDING NOTED.ENCOURAGED TO CALL FOR ANY NEEDS OR REQUESTS FOR THE NIGHT. CALL LIGHT WITHIN REACH AAT. BED ALARM PLACED ON. PATIENT VERBALIZES GOOD UNDERSTANDING. APPEARS HIGHLY MOTIVATED TO GET WELL.
[2017-04-30 20:31] VITALS: BP 105/59
[2017-04-30] MEDS: HYDROCODONE/APAP 5-325MG TABLET PO PRN (21:37)
--- NOTE | 2017-05-01 06:00 | NUR ---
slept well last night after norco x1 given prior to sleep. much less right hip stiffness this morning.comfortable at present after walking to toilet. no c/o uti symptoms. continues on bactrim po q 12 hrs. call light within reach.
[2017-05-01] MEDS: ACETAMINOPHEN 325 MG TABLET PO SCH ×3 (06:23→21:36)
[2017-05-01] MEDS: PANTOPRAZOLE SODIUM 40 MG TABLET.DR PO SCH (06:23)
[2017-05-01 08:00] VITALS: BP 128/71
--- NOTE | 2017-05-01 08:00 | NUR ---
NSG: Received patient sitting up in chair in her room. Alert, oriented and verbally responsive, No S/S of distress. c/o mild tolerable pain over surgical site. Offered pain medications but refused. patient tolerated well weight bearing assisted to bathroom.
[2017-05-01] MEDS: CALCIUM CARB/VITAMIN D 500MG-200UNITS TABLET PO SCH (08:39)
[2017-05-01] MEDS: ACIDOPHILUS/BULGARICUS CHEW TAB PO SCH ×2 (08:39→21:35)
[2017-05-01] MEDS: SULFAMETH/TRIMETH 800/160 MG TABLET PO SCH ×2 (08:39→21:35)
[2017-05-01] MEDS: DOCUSATE SODIUM 100 MG CAPSULE PO SCH ×2 (09:23→21:35)
[2017-05-01 10:36] VITALS: BP 128/71
--- NOTE | 2017-05-01 11:26 | NUR ---
Criteria Noted Initial assessment/CONSULT Nutritional Assessment None of the Above Nutritional Risk Moderate Diagnosis Hip fracture Pertinent Medical Surgical History No noted hx Subjective Information Pt is an 86 yo female admitted s/p fall, s/p right hip ORIF POD #5. Pt unavailable at time of visit, PT with pt. Po intake 70% x 6 meals, no diet recommendation at this time. Initial physical assessment showed no overt s/s of malnutrition. Current Diet Order Regular Pertinent Medications Colace, NS @ 100 ml, Protonix DNI - administer Protonix 1 hr before or after meals Pertinent Labs 04/28: H/H 11.3/32.8 (L/L), Na 133 (L), Cr 0.4 (L), Glucose 107 (H) Regular Intake and Output 04/27: 3880 ml Height (Inches) 67.00 inches Patient Height 63 in Weight (Pounds) 140 pounds- (on 04/28 in [facility] wt was 135 and ht was 67 inches)-spoke to RN to recheck wt and ht for accuracy Skin Breakdown No Skin Integrity Comment incision on right hip from surgery, no pressure injury or other skin openings Recent Weight Change VIRGINIE [place] Body Weight 61.4 kg % [place] Body Weight 100% Body Mass Index 24.8 Weight Status WNL Difficulty With Chewing/Swallowing Prior to Admission VIRGINIE Food Allergies VIRGINIE Food Intolerances VIRGINIE Usual Diet At Home Regular Usual Appetite VIRGINIE Method Of Calculation 61.2 kg (CBW) Calories/Kcals/Kg 25-30 Kcals Calculated 1560-8634 Protein - g/kg 1.0-1.2 Protein Calculated 61-73 Fluid ml/kg 25-30 Fluid Calculated 6806-1240 Current Dietary Intake Fair(50-74%) Comments Avg po intake 70%, no diet recommendations at this time- if PO less than 50%- boost plus is rec No nutrition diagnosis at this time Abdominal Distention No Gastrointestinal Symptoms None Last BM 04/30, bowel sounds active Nutrition Tolerance Comments Tolerating diet Expected Outcomes/Goals PO intake >75% within 3-5 days No significant wt change during hospital stay No N/V/D/C Addendum: 05/02/17 at [address] Amended: Links added.
--- NOTE | 2017-05-01 13:17 | NUR ---
NSG: TYLENOL 650 MG PO GIVEN FOR GEN: PAIN A ROUTINE DOSE.
[2017-05-01] MEDS: RIVAROXABAN 10 MG TABLET PO SCH (17:15)
--- NOTE | 2017-05-01 18:46 | NUR ---
pt complaints of no pain. pt given xarelto as prescribed. pt phone is not working so phone switched for 118 A. pt had no signs of acute distress. call light within [facility]. will continue to endorse new orders.
--- NOTE | 2017-05-01 19:30 | NUR ---
RECEIVED PATIENT SITTING UP IN CHAIR VISITING WITH FAMILY IN NO ACUTE DISTRESS. APPEARS COMFORTABLE.OBSERVED PATIENT DOING LEG EXERCISES TO MINIMIZE HIP STIFFNESS. ENCOURAGEMENT AND SUPPORT GIVEN.INSTRUCTED TO CALL RN FOR ANY REQUESTS AND /OR NEEDS. CALL LIGHT WITHIN REACH AAT. PATIENT VERBALIZES GOOD UNDERSTANDING. VERY MOTIVATED TO GET STRONGER AND MORE INDEPENDENT.
[2017-05-01 20:00] VITALS: BP 117/67
[2017-05-01] MEDS: HYDROCODONE/APAP 5-325MG TABLET PO PRN (22:32)
--- NOTE | 2017-05-02 06:00 | NUR ---
SLEPT WELL TONIGHT AFTER NORCO X1 GIVEN PIOR TO SLEEP. DOES C/O RIGHT HIP STIFFNESS WHEN SHE DOESN'T KEEP MOBILE. AMBULATED TO TOILET WITH STANDBY ASSIST AND IMPROVED STEADY GAIT.NO ACCIDENTS TONIGHT.PREMEDICATED WITH ONE NORCO THIS MORNING IN PREPARATION FOR EARLY PHYSICAL THERAPY. CALL LIGHT WITHIN REACH.
[2017-05-02] MEDS: HYDROCODONE/APAP 5-325MG TABLET PO PRN (06:30)
[2017-05-02] MEDS: PANTOPRAZOLE SODIUM 40 MG TABLET.DR PO SCH (06:30)
[2017-05-02] MEDS: ACETAMINOPHEN 325 MG TABLET PO SCH ×3 (06:31→22:31)
[2017-05-02] MEDS: CALCIUM CARB/VITAMIN D 500MG-200UNITS TABLET PO SCH (09:12)
[2017-05-02] MEDS: ACIDOPHILUS/BULGARICUS CHEW TAB PO SCH ×2 (09:12→21:24)
[2017-05-02] MEDS: DOCUSATE SODIUM 100 MG CAPSULE PO SCH ×2 (09:13→21:25)
--- NOTE | 2017-05-02 16:21 | NUR ---
Strapping Machine Operator: SW met with pt at bedside to assess needs and provide support. Pt is an 86-year-old female admitted to ARU for Right hip intertrochanteric fracture, which resulted in impaired mobility and functional decline. Pt presented in a calm and pleasant mood during oncology social work interview. She reported she was visiting from [place] for her granddaughters wedding, and had a fall. Per pt, she has no hx of falls at home and has no problems performing her ADL's. Pt stated "I use my cane, but I'm able to shop,cook, and clean for myself." She also stated "the only thing I have help with is the gardening." Pt reported her daughter and son also reside in the [facility], and are both aware of her hospitalizations. She stated her granddaughter lives in [place] and has been supportive through her ARU admission. She reported to have a strong social support. When asked about goals, pt stated "my stiches should be removed on Monday, so I'm hoping I can travel back home soon." JENNIFER engaged in active listening and provided supportive counseling related to pt's hospitalizations. SW will continue to provide emotional support related to issues of loss for decline in ambulation.
[2017-05-02] MEDS: RIVAROXABAN 10 MG TABLET PO SCH (17:18)
[2017-05-02 17:31] VITALS: BP 128/64
--- NOTE | 2017-05-02 19:05 | NUR ---
pt had no signs of acute distress during shift. pt states her approval of the unit and their care. meds were given around the clock for pain. xarelto was given. provided comfort measures and call light within reach. will continue to endorse plan of care to roof technician.
[2017-05-02 20:32] VITALS: BP 99/55
[2017-05-03] MEDS: PANTOPRAZOLE SODIUM 40 MG TABLET.DR PO SCH (06:55)
[2017-05-03] MEDS: ACETAMINOPHEN 325 MG TABLET PO SCH ×3 (06:55→21:25)
[2017-05-03 08:23] VITALS: BP 113/60
[2017-05-03] MEDS: CALCIUM CARB/VITAMIN D 500MG-200UNITS TABLET PO SCH (09:44)
[2017-05-03] MEDS: ACIDOPHILUS/BULGARICUS CHEW TAB PO SCH ×2 (09:44→20:46)
[2017-05-03] MEDS: DOCUSATE SODIUM 100 MG CAPSULE PO SCH ×2 (09:45→20:46)
--- NOTE | 2017-05-03 15:09 | NUR ---
REHAB TEAM CONFERENCE MEETING 05/03/17
[2017-05-03] MEDS: RIVAROXABAN 10 MG TABLET PO SCH (17:56)
--- NOTE | 2017-05-03 19:30 | NUR ---
RECEIVED PATIENT AWAKE,ALERT, AND ORIENTED X4. APPEARING IN NAD AT PRESENT. DOES C/O BEING TIRED FROM PHYSICAL THERAPY AND WOULD LIKE TO GO TO SLEEP EARLY TONIGHT.PM CARE DONE.REFUSES PM SNACK.INSTRUCTED TO CALL RN FOR ANY NEEDS OR REQUESTS. VERBALIZES GOOD UNDERSTANDING.CALL LIGHT WITHIN REACH AND WITH BED ALARM ON AAT.
[2017-05-03 20:44] VITALS: BP 102/59
[2017-05-03] MEDS: HYDROCODONE/APAP 5-325MG TABLET PO PRN (21:26)
--- NOTE | 2017-05-04 06:15 | NUR ---
PATIENT SLEPT WELL TONIGHT AFTER RECEIVING ONE NORCO PRIOR TO SLEEP. PAIN MANAGED WELL ENOUGH TO SLEEP SOUNDLY. RIGHT HIP DRESSING CLEAN, DRY, AND INTACT. NOT TO BE CHANGED UNTIL MONDAY ACCORDING TO THE SURGEON. CSM ADEQUATE TO TOES. IN NAD THIS MORNING. CALL LIGHT WITHIN REACH
[2017-05-04] MEDS: ACETAMINOPHEN 325 MG TABLET PO SCH ×3 (06:40→21:22)
[2017-05-04] MEDS: PANTOPRAZOLE SODIUM 40 MG TABLET.DR PO SCH (06:40)
[2017-05-04 08:17] VITALS: BP 126/67
[2017-05-04] MEDS: CALCIUM CARB/VITAMIN D 500MG-200UNITS TABLET PO SCH (09:37)
[2017-05-04] MEDS: ACIDOPHILUS/BULGARICUS CHEW TAB PO SCH ×2 (09:37→21:22)
[2017-05-04] MEDS: DOCUSATE SODIUM 100 MG CAPSULE PO SCH ×2 (09:38→21:22)
[2017-05-04] MEDS: RIVAROXABAN 10 MG TABLET PO SCH (17:23)
--- NOTE | 2017-05-04 18:33 | NUR ---
pt had no complications during shift. pt had no changes in LOC nor vital signs. pt had no new orders. pt given comfort measures and pt adhered to medication. pt was had no pt and ot interventions. pt had interminent naps throughout the days. will continue to endorse changes.
--- NOTE | 2017-05-04 19:30 | NUR ---
RECEIVED PATIENT AWAKE, ALERT, AND OREINTED X4. IN NO APPARENT DISTRESS AT PRESENT SITTING UP IN BED READING. RIGHT HIP DRESSING CLEAN, DRY, AND INTACT. CSM ADEQUATE TOTOES.COMOFORTABLE AT PRESENT. NO REQUESTS AT PRESENT. CALL LIGHT WITHIN REACH AAT
[2017-05-04 20:00] VITALS: BP 102/62
[2017-05-04] MEDS: HYDROCODONE/APAP 5-325MG TABLET PO PRN (21:23)
--- NOTE | 2017-05-05 06:00 | NUR ---
SLEPT WELL AFTER ONE NORCO GIVEN PRIOR TO SLEEP. COMFORTABLE THIS MORNING. IN NAD.CALL LIGHT WITHIN REACH
[2017-05-05] MEDS: ACETAMINOPHEN 325 MG TABLET PO SCH ×3 (06:25→22:06)
[2017-05-05] MEDS: PANTOPRAZOLE SODIUM 40 MG TABLET.DR PO SCH (06:25)
[2017-05-05] MEDS: ACIDOPHILUS/BULGARICUS CHEW TAB PO SCH ×2 (08:17→22:05)
[2017-05-05] MEDS: DOCUSATE SODIUM 100 MG CAPSULE PO SCH ×2 (08:17→22:05)
[2017-05-05] MEDS: CALCIUM CARB/VITAMIN D 500MG-200UNITS TABLET PO SCH (08:20)
[2017-05-05 08:22] VITALS: BP 121/65
[2017-05-05] MEDS: RIVAROXABAN 10 MG TABLET PO SCH (17:54)
--- NOTE | 2017-05-05 19:07 | NUR ---
Patient had a good today. Worked with PT OT and visited with daughter today
--- NOTE | 2017-05-05 19:30 | NUR ---
RECEIVED PATIENT UP IN CHAIR IN NO ACUTE DISTRESS. COMFORTABLE AT PRESENT. PM SNACK REFUSED. PM CARE DONE QUITE INDEPENDENTLY.RIGHT HIP DRESSING CLEAN, DRY, AND INTACT. DRESSING TO BE CHANGED ON MONDAY WHEN JARED ARE TO BE REMOVED BY MD ACCORDING TO PATIENT.CSM ADEQUATE TO TOES.INSTRUCTED TO CALL RN FOR ALL NEEDS OR REQUESTS. CALL LIGHT WITHIN REACH AAT.
[2017-05-05 20:00] VITALS: BP 128/60
[2017-05-05] MEDS: HYDROCODONE/APAP 5-325MG TABLET PO PRN (22:05)
--- NOTE | 2017-05-06 06:00 | NUR ---
SLEPT ONLY FAIR AFTER NORCO X1 GIVEN PRIOR TO SLEEP B/C PATIENT HAD TO GET OOB TO TOILET A FEW TIMES.NO C/O UTI SYMPTOMS HOWEVER, AND URINE APPEAR CLEAR AND WITHOUT SEDIMENT OR DISCOLORATION. C/O BEING SOMEWHAT STIFF THIS MORNING. MORNING TYLENOL ATC DOSE GIVEN AT THIS TIME.RIGHT HIP DRESSING CLEAN AND DRY. CSM ADEQUATE TO TOES. SO MUCH IMPROVEMENT NOTED IN FUNCTIONAL TASKS SINCE ADMISSION TO ARU. APPEARS IN NAD AT THIS TIME. CALL LIGHT WITHIN REACH
[2017-05-06] MEDS: PANTOPRAZOLE SODIUM 40 MG TABLET.DR PO SCH (06:21)
[2017-05-06] MEDS: ACETAMINOPHEN 325 MG TABLET PO SCH ×3 (06:22→21:52)
[2017-05-06 08:00] VITALS: BP 141/71
[2017-05-06] MEDS: ACIDOPHILUS/BULGARICUS CHEW TAB PO SCH ×2 (10:38→21:52)
[2017-05-06] MEDS: DOCUSATE SODIUM 100 MG CAPSULE PO SCH ×2 (10:38→21:51)
[2017-05-06] MEDS: CALCIUM CARB/VITAMIN D 500MG-200UNITS TABLET PO SCH (10:38)
--- NOTE | 2017-05-06 18:21 | NUR ---
pt states that she had new bruises on arms and left leg. md notified through text and md farnsworth states that he will most likely stop the medication. asked for a clarification as to when to stop medication. md has not responded. will continue to ask for clarification from md or endorse concern to plant operator/shift supervisor nurse.
[2017-05-06] MEDS: RIVAROXABAN 10 MG TABLET PO SCH (19:11)
[2017-05-06 22:00] VITALS: BP 107/69
[2017-05-07] MEDS: PANTOPRAZOLE SODIUM 40 MG TABLET.DR PO SCH (06:14)
[2017-05-07] MEDS: ACETAMINOPHEN 325 MG TABLET PO SCH ×3 (06:14→21:42)
[2017-05-07 08:11] VITALS: BP 136/69
[2017-05-07] MEDS: DOCUSATE SODIUM 100 MG CAPSULE PO SCH ×2 (09:00→21:42)
[2017-05-07] MEDS: ACIDOPHILUS/BULGARICUS CHEW TAB PO SCH ×2 (09:10→21:42)
[2017-05-07] MEDS: CALCIUM CARB/VITAMIN D 500MG-200UNITS TABLET PO SCH (09:10)
--- NOTE | 2017-05-07 15:04 | NUR ---
PT STATES THAT SHE DOESNT WANT COLACE BECAUSE HER BOWEL MOVEMENTS ARE FINE. PT REFUSED MEDICATIONS. WILL CONTINUE TO REASS PT ABOUT COMPLICATIONS.
--- NOTE | 2017-05-07 15:10 | NUR ---
NOTIFIED ABORIGINAL LIAISON OFFICER DR GAVIRIA ABOUT CONSULT ON HIP STAPLE SITE SINCE DR UNDERWOOD IS NOT ABORIGINAL LIAISON OFFICER FOR MONDAY. PAGED. CALLED BACK. SAID TO CALL SURGEON WHO HAD DONE THE SURGERY. STAPLE SITE KEPT DRY AND WAS NOT OPENED ORDERED BY SURGEON WHO HAD DONE THE SURGERY.
[2017-05-07] MEDS: RIVAROXABAN 10 MG TABLET PO SCH (17:13)
--- NOTE | 2017-05-07 18:21 | NUR ---
talked to dr bey about dressign change. approved of just dressing change daily
--- NOTE | 2017-05-07 19:23 | NUR ---
CHANGED DRESSING DURING SHIFT. SITE INTACT AND DRY. PT REQUESTS PAIN PILL. NO SIGNS OF ACUTE DISTRESS. PROVIDED COMFORT MEASURES. WILL ENDORSE PAIN MEDICATION TO HAIR SPINNER NURSE.
[2017-05-07 20:00] VITALS: BP 134/74
[2017-05-07 21:30] VITALS: BP 134/74
[2017-05-08] MEDS: ACETAMINOPHEN 325 MG TABLET PO SCH ×3 (06:33→20:51)
[2017-05-08] MEDS: PANTOPRAZOLE SODIUM 40 MG TABLET.DR PO SCH (06:33)
--- NOTE | 2017-05-08 07:45 | NUR ---
PT RECEIVED IN BED AWAKE.NO C/O PAIN NOTED.V/S ARE STABLE.BREAKFAST SERVED.PT IS AXOX4
[2017-05-08 08:08] VITALS: BP 147/79
[2017-05-08] MEDS: ACIDOPHILUS/BULGARICUS CHEW TAB PO SCH ×2 (08:18→20:50)
[2017-05-08] MEDS: CALCIUM CARB/VITAMIN D 500MG-200UNITS TABLET PO SCH (08:18)
[2017-05-08] MEDS: DOCUSATE SODIUM 100 MG CAPSULE PO SCH ×2 (08:18→20:50)
--- NOTE | 2017-05-08 12:00 | NUR ---
PT WENT WITH FAMILY TO OUT SIDE PATIO.NO C/O PAIN NOTED.
[2017-05-08] MEDS: RIVAROXABAN 10 MG TABLET PO SCH (17:18)
--- NOTE | 2017-05-08 17:39 | NUR ---
PT RESTING IN HER BED ,JARED REMOVED BY ANA ROMERO
[2017-05-08 20:00] VITALS: BP 128/64
[2017-05-08 20:32] VITALS: BP 134/74
[2017-05-08 21:00] VITALS: BP 128/64
[2017-05-09] MEDS: PANTOPRAZOLE SODIUM 40 MG TABLET.DR PO SCH (06:19)
[2017-05-09] MEDS: ACETAMINOPHEN 325 MG TABLET PO SCH ×3 (06:19→21:13)
--- NOTE | 2017-05-09 07:49 | NUR ---
RECEIVED PATIENT AWAKE, ALERT, AND ORIENTED X4. IN NO APPARENT DISTRESS AT PRESENT SITTING UP IN BED READING. BREAKFAST SERVED.
[2017-05-09 08:00] VITALS: BP 106/68
[2017-05-09] MEDS: ACIDOPHILUS/BULGARICUS CHEW TAB PO SCH ×2 (08:18→21:13)
[2017-05-09] MEDS: CALCIUM CARB/VITAMIN D 500MG-200UNITS TABLET PO SCH (08:18)
[2017-05-09] MEDS: DOCUSATE SODIUM 100 MG CAPSULE PO SCH ×2 (08:18→21:13)
--- NOTE | 2017-05-09 08:31 | NUR ---
PT TAKING SHOWER ,OT WORKING WITH THE PT.
--- NOTE | 2017-05-09 11:57 | NUR ---
pt went home with the permission of dr oviedo on day pass will be back in 2-3 hrs.via private car in stable condition.
--- NOTE | 2017-05-09 16:43 | NUR ---
PT IS BACK FROM HOME ,V/S ARE STABLE ,FAMILY AT BED SIDE.
[2017-05-09] MEDS: HYDROCODONE/APAP 5-325MG TABLET PO PRN (16:46)
[2017-05-09] MEDS: RIVAROXABAN 10 MG TABLET PO SCH (17:05)
[2017-05-09 20:00] VITALS: BP 107/56
[2017-05-10] MEDS: PANTOPRAZOLE SODIUM 40 MG TABLET.DR PO SCH (06:20)
[2017-05-10] MEDS: ACETAMINOPHEN 325 MG TABLET PO SCH ×3 (06:20→20:58)
[2017-05-10 08:35] VITALS: BP 118/74
[2017-05-10] MEDS: ACIDOPHILUS/BULGARICUS CHEW TAB PO SCH ×2 (08:59→20:58)
[2017-05-10] MEDS: CALCIUM CARB/VITAMIN D 500MG-200UNITS TABLET PO SCH (08:59)
[2017-05-10] MEDS: DOCUSATE SODIUM 100 MG CAPSULE PO SCH ×2 (09:00→20:58)
--- NOTE | 2017-05-10 15:46 | NUR ---
REHAB TEAM CONFERENCE MEETING 05/10/17
[2017-05-10] MEDS: RIVAROXABAN 10 MG TABLET PO SCH (17:13)
[2017-05-10 20:26] VITALS: BP 115/59
[2017-05-11] MEDS: PANTOPRAZOLE SODIUM 40 MG TABLET.DR PO SCH (06:29)
[2017-05-11] MEDS: ACETAMINOPHEN 325 MG TABLET PO SCH ×2 (06:30→12:04)
--- NOTE | 2017-05-11 06:49 | NUR ---
Slept well throughout the night, assisted to restroom as needed. Had no complains of pain or discomfort. Scheduled to be d/c today. Call light within reach, all needs attended to.
--- NOTE | 2017-05-11 07:14 | NUR ---
Received patient from respite worker, patient resting comfortably in bed, no signs of acute distress noted. VS WNL, no complaints of pain at this time. No other verbalized needs at this time, safety and fall precautions maintained. Xarelto and Tylenol confirmed can give to patient before she leaves today around 1200, per Kade at pharmacy and Kaitlin, director. Explained to patient, verbalizes understanding.
[2017-05-11] MEDS: CALCIUM CARB/VITAMIN D 500MG-200UNITS TABLET PO SCH (08:52)
[2017-05-11] MEDS: ACIDOPHILUS/BULGARICUS CHEW TAB PO SCH (08:52)
[2017-05-11] MEDS: DOCUSATE SODIUM 100 MG CAPSULE PO SCH (08:52)
--- NOTE | 2017-05-11 11:53 | NUR ---
Received orders to discharge patient back home. Dr. Izquierdo and Dr. Bishop notified and made aware, rn case mgr Amrita White made aware. Discharge paperwork and instructions reviewed with patient, family, and family nurse, Yuli, observed at bedside. All questions regarding discharge instructions and medications answered, no other verbalized needs at this time. VS WNL, patient observed dressed, sitting at edge of bed in no acute distress. Tylenol and Xarelto given as unscheduled administration per Kade in pharmacy. No other needs observed. Safety and fall precautions maintained.
[2017-05-11] MEDS: RIVAROXABAN 10 MG TABLET PO SCH (12:06)
== END 2017-05-11 12:15 | disposition home or self-care (01) | DRG 560 ==
PROVIDERS: ADMIT Physical Medicine & Rehabilitation Pain Medicine; ATTEND Physical Medicine & Rehabilitation Pain Medicine
DX: S72.141D Displaced intertrochanteric fracture of right femur, subsequent encounter for closed fracture with routine healing (principal); D68.69 Other thrombophilia; N39.0 Urinary tract infection, site not specified; W01.0XXD Fall on same level from slipping, tripping and stumbling without subsequent striking against object, subsequent encounter; D50.9 Iron deficiency anemia, unspecified; B96.20 Unspecified Escherichia coli [E. coli] as the cause of diseases classified elsewhere; E87.6 Hypokalemia; I10 Essential (primary) hypertension; I34.1 Nonrheumatic mitral (valve) prolapse; I70.0 Atherosclerosis of aorta; K21.9 Gastro-esophageal reflux disease without esophagitis; M19.90 Unspecified osteoarthritis, unspecified site; Z87.891 Personal history of nicotine dependence; R26.9 Unspecified abnormalities of gait and mobility; R53.1 Weakness; I08.0 Rheumatic disorders of both mitral and aortic valves
CPT/HCPCS: 70030-TC; 92523; 97110; 97112; 97116; 97161; 97165; 97530; 97535